=== PATIENT | female | born 1970 | race Caucasian/White ===

== ENCOUNTER → 2016-12-21 | Outpatient (CLI) | payer OTHER, MEDICARE | END | disposition home or self-care (01) | LOC: GMAH 12:05 | PROVIDERS: ATTEND Family Medicine | DX: E78.2 Mixed hyperlipidemia (principal); E03.9 Hypothyroidism, unspecified ==

== ENCOUNTER 2017-02-26 05:26 | Emergency (ER) | payer OTHER, MEDICARE ==
--- NOTE | 2017-02-26 06:05 | ED.PDOC ---
History of Present Illness - General Chief Complaint: Respiratory Problem Stated Complaint: found unrepsonsive Time Seen by Provider: 02/26/17 05:49 Source: patient, family, EMS - History of Present Illness Initial Comments: CRITICAL CARE RESUSCITATION NOTE (UNRESPONSIVENESS, SUSPECTED UNINTENTIONAL NARCOTIC OVERDOSE): AIRWAY, BREATHING, AND CIRCULATION IN TACT UPON ARRIVAL TO ER. PT TAKES NARCOTICS (OXYCODONE, FENTANYL PATCH) AND ANXIOLYTICS (XANAX, SEROQUEL , AMBIEN) FOR CHRONIC LBP. 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 AT 4 AM, HE FOUND HER IN THE [place]IN[place] ON THE [place] ASLEEP. HE CALLED HER NAME AND SHE WAS UNAROUSABLE. HE CALLED EMS. PT WAS UNRESPONSIVE VIA EMS, SATS 87%, RR 8, PUPILS PINPOINT. SYSTOLIC 87 THEY OBTAINED 22 G IV AND STARTED FLIUDS AND GAVE NARCAN 2 MG IV. SHE STARTED WAKING UP UPON ARRIVAL TO ER. IN ER, SHE BECAME VERBALLY RESPONSIVE, OPENED EYES SPONTANEOUSLY, YAWNING, REPEATEDLY STATING HOW SHE WAS VERY COLD. SHE HAD NUMEROUS BLANKETS ON TOP OF HER. WE PLACED NEW, WARM BLANKETS AND CHANGED TO THE WARMED IVF, AND RAISED THE TEMP OF THE TRAUMA ROOM. ATTEMPTING 2ND LINE CURRENTLY. HER SATS WERE 100% ON 2L VENTI MASK. SHE WAS ORIENTED X 3 TO ME AND [facility] 15. I REMOVED THE MASK AND SHE REMAINED 99% ON RA. BP ELEVATED TO NL W/ NARCAN AND IVF (SYSTOLIC 115) . Severity: severe Improving Factors: medication Associated Symptoms: other - C/O FEELING COLD Allergies/Adverse Reactions: Allergies Chlorhexidine [From Hibiclens] Allergy (Severe, Verified 03/09/14 15:49) Sulfa Drugs Allergy (Severe, Verified 03/09/14 15:49) Valproic Acid [From Depakote] Allergy (Severe, Verified 03/09/14 15:49) Doxycycline Allergy (Verified 02/26/17 06:18) Sumatriptan [From Imitrex] Allergy (Verified 02/26/17 06:18) Home Medications: Ambulatory Orders Vilazodone HCl [Viibryd] 40 mg PO DAILY 04/27/13 Metoprolol Succinate [Metoprolol Succinate ER] 50 mg PO DAILY 03/09/14 Tizanidine HCl 4 mg PO DAILY PRN 03/09/14 Zolpidem Tartrate [Zolpidem Tartrate ER] 12.5 mg PO HS 03/09/14 fentaNYL PATCH 100 MCG/HR [Duragesic Patch 100 mcg/hr] 100 mcg TOP Q48H Levetiracetam [Keppra] 1,000 mg PO BID 01/07/16 Nifedipine [Procardia Xl] 60 mg PO DAILY 01/07/16 Alprazolam [Xanax] 1 mg PO TID 02/26/17 Levothyroxine Sodium [Synthroid] 175 mcg PO DAILY 02/26/17 Oxycodone W/ Acetaminophen [Endocet 7.5-325 mg] 1 tab PO QID 02/26/17 Quetiapine Fumarate [Seroquel] 50 mg PO BEDTIME 02/26/17 Rosuvastatin Calcium [Crestor] 10 mg PO QID 02/26/17 Review of Systems - Review of Systems Constitutional: States: chills. Denies: diaphoresis, fever EENTM: States: no symptoms reported Respiratory: States: no symptoms reported Cardiology: States: no symptoms reported Gastrointestinal/Abdominal: States: no symptoms reported Genitourinary: States: no symptoms reported Musculoskeletal: States: back pain Skin: States: no symptoms reported Neurological: States: no symptoms reported Endocrine: States: no symptoms reported Hematologic/Lymphatic: States: no symptoms reported All other Systems: Reviewed and Negative Past Medical History (General) - Patient Medical History Hx Seizures: Yes Hx Cardiac Disorders: Yes - Blood clot to R shoulder (info provided by ) Hx Congestive Heart Failure: No Hx Hypertension: Yes Hx Diabetes: No Hx Renal Disease: Yes Hx MRSA: Yes MRSA Source:: R knee - Vaccination History Hx Tetanus, Diphtheria Vaccination: No Hx Influenza Vaccination: Yes Hx Pneumococcal Vaccination: No - Social History Hx Physical Abuse: No Hx Emotional Abuse: No Hx Suspected Abuse: No Family Medical History - Family History Mother Family History: Unknown Physical Exam - Physical Exam General Appearance: Lethargic, Well Nourished, Other - BECOMING ALERT Eye Exam: bilateral normal Ears, Nose, Throat: normal ENT inspection, normal pharynx Neck: non-tender Respiratory: chest non-tender, lungs clear, decreased breath sounds, other - RESPIRATIONS QUICKLY BECAME NORMAL WITH NL BREATH SOUNDS; NO RESPIRATORY DISTRESS. Cardiovascular/Chest: regular rate, rhythm, no edema, no gallop, no JVD, no murmur Peripheral Pulses: radial,right: 1+, radial,left: 1+ Gastrointestinal/Abdominal: normal bowel sounds, non tender, soft Back Exam: normal inspection, no vertebral tenderness, vertebral tenderness Extremity: normal range of motion, other - ANKLE PAIN FROM RECENT SPRAIN; DOROTEO WRAP IN PLACE. Neurologic: box liner II-XII nml as tested, no motor/sensory deficits, oriented x 3, other - NOTE: PT WAS UNRESPONSIVE UPON ARRIVAL AND NOW HER NEUROLOGIC STATUS HAS RETURNED TO NORMAL. NO POST ICTAL STATE; NO KNOWN EPILEPSY. Skin Exam: warm/dry, pallor Lymphatic: no adenopathy Progress - Progress Progress: 02/26/17 06:13 RE-EVALUATION: IS IS NOW COMPLETELY RECOVERED, RESPONSIVE, MAKING NL CONVERSATION. 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 LABS DRAWN. 02/26/17 06:54 PT IS HIGHLY REQUESTING TO GO HOME NOW, THE BED IS WORSENING HER LBP AND SHE HAS A SPECIAL BED AT HOME. SHE IS LUCID. WE ARE GETETING HER UP TO SEE IF CAN AMBULATE SAFELY. LABS ARE BACK EXCEPT UA. I ASKED HER IF SHE WOULD STAY JUST LONG ENOUGH FOR THE ANKLE XRAYS TO COME BACK, THAT WAY WE CAN TREAT HER WHILE SHE IS HERE FOR THE ANKLE SPRAIN VS FRACTURE. SHE IS OK WITH THIS PLAN. 02/26/17 07:07 XRAY - LAT MALLEOLAR NONDISPLACED FRX, CONTINUE ANKLE WRAP. ALL RESULTS ARE BACK AND PT IS CLEARED AND SAFE FOR DC TO HOME WITH HER WITH CLOSE FOLLOW-UP. - Results/Orders Results/Orders: LAB RESULTS: MILD NEUTROPHILIC LEUKOCYTOSIS. HYPOKALEMIA. NORMOCYTIC, NORMOCHROMIC ANEMIA. UA PENDING EKG SINUS RHYTHM WITH PROLONGED QT INTERVAL. NO ACUTE ST CHANGES. ANKLE XRAY = FRACTURE OF LATER MALLEOLUS, NONDISPLACED. Departure - Departure Clinical Impression: Unresponsiveness, Accidental poisoning by opiates and related narcotics, Anemia , Neutrophilic leukocytosis, Hypokalemia, Acute right ankle pain, Lateral malleolar fracture Disposition: Discharge to Home or Self Care Condition: Fair Departure Forms: ED Discharge - Pt. Copy, Patient Portal Self Enrollment Instructions: DI for Ankle Fracture Diet: resume usual diet Activity: increase activity as tolerated Referrals: Sandor Toledo MD [Primary Care Provider] - 1-2 Days Home Medications: Ambulatory Orders Vilazodone HCl [Viibryd] 40 mg PO DAILY 04/27/13 Metoprolol Succinate [Metoprolol Succinate ER] 50 mg PO DAILY 03/09/14 Tizanidine HCl 4 mg PO DAILY PRN 03/09/14 Zolpidem Tartrate [Zolpidem Tartrate ER] 12.5 mg PO HS 03/09/14 fentaNYL PATCH 100 MCG/HR [Duragesic Patch 100 mcg/hr] 100 mcg TOP Q48H Levetiracetam [Keppra] 1,000 mg PO BID 01/07/16 Nifedipine [Procardia Xl] 60 mg PO DAILY 01/07/16 Alprazolam [Xanax] 1 mg PO TID 02/26/17 Levothyroxine Sodium [Synthroid] 175 mcg PO DAILY 02/26/17 Oxycodone W/ Acetaminophen [Endocet 7.5-325 mg] 1 tab PO QID 02/26/17 Quetiapine Fumarate [Seroquel] 50 mg PO BEDTIME 02/26/17 Rosuvastatin Calcium [Crestor] 10 mg PO QID 02/26/17 Additional Instructions: Please follow-up with your neurologist and doctor regarding the Lyme disease and pain medications. Please follow-up with your doctor in 1 week to re- evaluate the ankle (lateral malleolus) fibular fracture. Critical Care Note - Critical Care Note Total Time (mins): 30 Comments: PER HPI
[2017-02-26 06:49] VITALS: TEMP 97.9
--- NOTE | 2017-02-26 07:21 | RAD ---
Procedure: XR ANKLE 3 OR MORE VIEWS Exam Date: 02/26/2017 Ordering Provider: Jerome Honeycutt Clinical Indication: PERSISTENT ANKLE AND FOOT PAIN FROM TWISTING ANKLE Comparison: None FINDINGS: Nondisplaced fracture of the lateral malleolus. No other fracture or dislocation of the right ankle. Diffuse soft tissue swelling. Ankle mortise is preserved. No significant joint effusion. No subcutaneous gas evident. No radiopaque foreign body. IMPRESSION: 1. Nondisplaced fracture of the lateral malleolus. 2. No other fracture or dislocation in the right ankle. 3. Diffuse soft tissue swelling. Electronically signed by: Grey Vivar MD 02/26/2017 7:20 AM CDT
--- NOTE | 2017-02-26 07:24 | RAD ---
Procedure: XR FOOT 3 OR MORE VIEWS Exam Date: 02/26/2017 Ordering Provider: Jerome Honeycutt Clinical Indication: PERSISTENT ANKLE AND FOOT PAIN FROM TWISTING ANKLE Comparison: None FINDINGS: No fracture or dislocation in the right foot. Nondisplaced fracture of the lateral malleolus as discussed on the dedicated ankle radiographs. No radiopaque foreign body. No subcutaneous gas evident. Soft tissue swelling overlying the dorsum of the foot. IMPRESSION: 1. No acute fracture or dislocation of the right foot. Electronically signed by: Grey Vivar MD 02/26/2017 7:23 AM CDT
[2017-02-26 07:30] VITALS: BP 153/74; O2SAT 95
== END 2017-02-26 07:30 | disposition home or self-care (01) ==
LOC: ER 05:26
DX: T50.991A Poisoning by other drugs, medicaments and biological substances, accidental (unintentional), initial encounter (principal); R55 Syncope and collapse; Z79.899 Other long term (current) drug therapy; G89.29 Other chronic pain; M54.5 Low back pain; D64.9 Anemia, unspecified; E87.6 Hypokalemia; D72.828 Other elevated white blood cell count; Z86.61 Personal history of infections of the central nervous system; I10 Essential (primary) hypertension; Z88.2 Allergy status to sulfonamides; Z88.3 Allergy status to other anti-infective agents; Z88.8 Allergy status to other drugs, medicaments and biological substances; Z86.14 Personal history of Methicillin resistant Staphylococcus aureus infection; S82.64XA Nondisplaced fracture of lateral malleolus of right fibula, initial encounter for closed fracture; X58.XXXA Exposure to other specified factors, initial encounter; Y92.008 Other place in unspecified non-institutional (private) residence as the place of occurrence of the external cause

== ENCOUNTER → 2017-04-05 | Outpatient (CLI) | payer MEDICARE, OTHER | END | disposition home or self-care (01) | LOC: LAB.O 09:12 | PROVIDERS: ATTEND Family Medicine | DX: I10 Essential (primary) hypertension (principal) ==

== ENCOUNTER → 2017-05-02 | Outpatient (CLI) | payer OTHER, MEDICARE ==
--- NOTE | 2017-05-03 14:14 | RAD ---
EXAM DESCRIPTION: Knee,Right Complete CLINICAL HISTORY: 46 years,Female,KNEE PAIN COMPARISON: None FINDINGS: The right knee demonstrates no fractures, dislocations, or other acute bony abnormalities. There is a prior transverse fracture of the patella fixated with a pin and cerclage wires and screw. It appears well healed. The fracture line was about 5 mm in width but is filled in well. The joint spaces are unremarkable. The soft tissues are unremarkable. No joint effusion. IMPRESSION: Prior healed fractures of the right patella no acute findings. Electronically signed by: Elroy Padgett MD 05/03/2017 2:13 PM CDT
--- NOTE | 2017-05-03 14:38 | RAD ---
EXAM DESCRIPTION: Ankle,Right 3 Views CLINICAL HISTORY: 46 years,Female,ANKLE PAIN COMPARISON: February 26, 2017 FINDINGS: The right ankle demonstrates transverse fracture the distal fibula with no significant displacement and some blurring of the fracture line since the prior study and no change in displacement. Ankle mortise and talar dome unremarkable. Soft tissues are unremarkable. IMPRESSION: Healing transverse fracture of the distal right fibula [] Electronically signed by: Elroy Padgett MD 05/03/2017 2:37 PM CDT
== END | disposition home or self-care (01) ==
LOC: RAD 13:58
PROVIDERS: ATTEND Orthopaedic Surgery
DX: M25.571 Pain in right ankle and joints of right foot (principal); M25.561 Pain in right knee

== ENCOUNTER → 2017-05-21 | Outpatient (CLI) | payer OTHER, MEDICARE | END | disposition home or self-care (01) | LOC: RESP 13:51 | PROVIDERS: ATTEND Orthopaedic Surgery | DX: Z01.818 Encounter for other preprocedural examination (principal) ==

== ENCOUNTER → 2017-05-25 | Outpatient (CLI) | payer OTHER, MEDICARE ==
--- NOTE | 2017-05-25 12:58 | RAD ---
EXAM DESCRIPTION: XR CHEST 2 VIEWS CLINICAL HISTORY: ESSENTIAL HYPERTENSION COMPARISON: None TECHNIQUE: PA/lateral FINDINGS: Heart size is normal. The lungs are clear. No acute bony abnormality. IMPRESSION: No acute cardiopulmonary process. Electronically signed by: Vidal Vo MD 05/25/2017 12:57 PM CDT
--- NOTE | 2017-05-25 14:08 | MRI ---
EXAM DESCRIPTION: Cervical Spine CLINICAL HISTORY: RADICULOPATHY, CERVICAL REGION. Pain with bilateral arm pain and numbness. COMPARISON: None Available. TECHNIQUE: MRI of the cervical spine is performed according to our usual protocol. FINDINGS: Straightening of the normal cervical lordosis, which may be seen with positioning or muscle spasm. Vertebral body stature is maintained. There is no acute fracture or destructive osseous lesion. Craniocervical junction and the cervical spinal cord are unremarkable. C2-3: No significant findings. C3-4: Mild disc desiccation. Mild facet hypertrophy and uncovertebral spurring. No spinal canal nor foraminal stenosis. C4-5: Mild disc desiccation and mild disc narrowing. Mild facet hypertrophy and uncovertebral spurring. 2 mm posterior disc osteophyte complex. Mild left greater than right neural foraminal stenosis. The spinal canal is patent. C5-6: Disc desiccation. Mild facet hypertrophy. No significant disc bulge, spinal canal, or neural foraminal stenosis. C6-7: Disc desiccation. Mild facet hypertrophy and uncovertebral spurring. Right lateral 3 mm disc protrusion with mild to moderate right neural foraminal stenosis. The spinal canal and left neural foramen are patent. C7-T1: No significant findings. IMPRESSION: 1. Mild multilevel spondylitic and facet degenerative changes in the cervical spine as described above. At C6-C7, there is mild to moderate right neural foraminal stenosis. 2. At C4-C5, there is mild left greater than right neural foraminal stenosis. 3. Other findings as above. Electronically signed by: Edgardo Rodriguez MD 05/25/2017 2:06 PM CDT
== END | disposition home or self-care (01) ==
LOC: MRI 10:22
PROVIDERS: ATTEND Psychiatry & Neurology Neurology
DX: G40.201 Localization-related (focal) (partial) symptomatic epilepsy and epileptic syndromes with complex partial seizures, not intractable, with status epilepticus (principal); I10 Essential (primary) hypertension; M54.12 Radiculopathy, cervical region

== ENCOUNTER 2017-05-28 05:38 | Day surgery (SDC) | payer OTHER, MEDICARE ==
--- NOTE | 2017-05-27 08:19 | HP ---
CHIEF COMPLAINT: Knee pain. HISTORY OF PRESENT ILLNESS: Tori is a 46-year-old female with a history of pain in the knee. She has had open reduction and internal fixation of her patella which healed successfully. Now it seems to be that she is having irritation over the hardware. She has no new trauma, denies any radiation of pain, and denies any neurologic symptoms. Given the healing that has taken place, we talked about options for her. After discussing the risks, benefits and alternatives for hardware removal, the patient has given informed consent for hardware removal. PAST SURGICAL HISTORY: She states she has had too many surgeries to list and she cannot recall all of them. MEDICATIONS: 1. Levothyroxine. 2. Keppra. 3. Procardia. 4. Toprol. 5. Nexium. 6. Tylenol 4. ALLERGIES: NO KNOWN DRUG ALLERGIES. CODE STATUS: Full code. IMMUNIZATIONS: Up to date. SOCIAL HISTORY: The patient does not drink, smoke or use any illicit drugs. FAMILY HISTORY: None pertinent to today's complaint. REVIEW OF SYSTEMS: Negative except as indicated in the History of Present Illness. PHYSICAL EXAMINATION: VITAL SIGNS: Blood pressure 150/102. Pulse 68. Height 5'8". Weight 159. MENTAL STATUS: The patient is awake, alert, and is able to give a good history and participate in the physical. The patient is oriented to person, place and time. SKIN: Normal tone and turgor. MUSCULOSKELETAL: She has sensitivity over the anterior aspect of the patella and she does have skin changes consistent with her chronic psoriasis although those appear to be well controlled at this point. She has no significant effusion right now. She has no varus/valgus or anterior/posterior laxity. There is no erythema overlying the area. IMAGING: X-rays show a healed patella fracture with some superficial appearing hardware. ASSESSMENT: 1. Symptomatic hardware. PLAN: The plan at this point is for hardware removal. We have discussed the risks, benefits, and alternatives to that and the patient has given informed consent. #[id number] [facility]
[2017-05-28] MEDS ORDERED: LACTATED RINGERS 1,000 ML ONE (05:49)
[2017-05-28] MEDS ORDERED: SODIUM CHL 0.9% 100ML MINI-BAG 100 ML IVPB ONE (05:49)
[2017-05-28] MEDS ORDERED: ceFAZolin SODIUM 1 GM VIAL ONE ×2 (05:50→06:42)
[2017-05-28] MEDS ORDERED: fentaNYL CITRATE INJ 50 MCG/ML AMP ONE (06:15)
[2017-05-28] MEDS ORDERED: VANCOMYCIN HCL INJ 1,000 MG VIAL IVPB ONE (06:42)
[2017-05-28] MEDS ORDERED: PROPOFOL 200 MG/20 ML VIAL IV ONE (07:00)
[2017-05-28] MEDS ORDERED: LIDOCAINE 1% W/ EPINEPHRINE 20 ML VIAL INJ ONE (08:13)
[2017-05-28] MEDS ORDERED: HYDROcodone 5MG/APAP 325MG 1 EA TAB ONE (09:38)
--- NOTE | 2017-05-28 09:48 | OP ---
DATE OF PROCEDURE: 05/28/17 PREOPERATIVE DIAGNOSIS: 1. Symptomatic hardware, right knee. POSTOPERATIVE DIAGNOSIS: 1. Symptomatic hardware, right knee. PROCEDURE: 1. Hardware removal. SURGEON: Ahmet Suggs MD. COMBATANT SWIMMER: Miguelangel Cohn CST, SA-C. ANESTHESIA: General anesthesia. COMPLICATIONS: None. FINDINGS: Prominent hardware from previous open reduction and internal fixation of patella. INDICATION: Tori had undergone previous open reduction and internal fixation of her patella. She had healing of the patella fracture, however, once all the swelling had resolved, she ultimately had prominence of the hardware. It was causing local irritation and she requested removal of that hardware. Because of that continued irritation, we did discuss the risks, benefits and alternatives to that and she gave informed consent. PROCEDURE: The patient was brought to the Operating Room and placed in supine position. General anesthesia was induced. The patient's leg was sterilely prepped and draped. Following prepping and draping, an incision was made in line with her previous incision. Blunt dissection was carried down to the hardware which was fully exposed. Following exposure, the hardware was removed without complication. The patella was imaged to ensure complete removal of all hardware. Once that had been confirmed, the wound was thoroughly irrigated. The wound was closed with a combination and running and interrupted subcuticular stitches. Sterile dressings were placed. The patient was awoken from anesthesia and taken to Recovery. POSTOPERATIVE PLAN: She will be weight-bearing as tolerated and followup with us in three days. #[id number] [facility]
[2017-05-28 09:59] VITALS: TEMP 97.6; O2SAT 100
[2017-05-28 10:02] VITALS: BP 124/67
== END 2017-05-28 10:30 | disposition home or self-care (01) ==
LOC: AMB 05:38
PROVIDERS: ATTEND Orthopaedic Surgery
DX: Z47.2 Encounter for removal of internal fixation device (principal); I10 Essential (primary) hypertension; E03.9 Hypothyroidism, unspecified; K21.9 Gastro-esophageal reflux disease without esophagitis; F41.8 Other specified anxiety disorders; F17.200 Nicotine dependence, unspecified, uncomplicated; Z79.899 Other long term (current) drug therapy
CPT/HCPCS: 01400; 20680; 76000; J0690; J3010; J3370; J3490; J7050; J7120

== ENCOUNTER → 2018-04-04 | Outpatient (CLI) | payer OTHER | LOC: LAB.O 09:32 | PROVIDERS: ATTEND Family Medicine | DX: I10 Essential (primary) hypertension (principal); R56.9 Unspecified convulsions; E78.2 Mixed hyperlipidemia; E03.9 Hypothyroidism, unspecified ==

== ENCOUNTER 2018-04-12 22:33 | Emergency (ER) | payer OTHER ==
[2018-04-12] MEDS ORDERED: POVIDONE IODINE 10 % 15 ML UD TOP ONE (23:10)
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
[2018-04-12] MEDS ORDERED: TETANUS-DIPHTHERIA TOXOIDS (TD 1 EA SYG IM ONE (23:24)
[2018-04-12] MEDS ORDERED: TETANUS,DIPHTHERIA,PERTUSSIS 1 EA SYG IM ONE (23:39)
[2018-04-12] MEDS ORDERED: KETOROLAC TROMETHAMINE INJ 60 MG/2 ML VIAL IM ONE (23:56)
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
--- NOTE | 2018-04-13 00:22 | RAD ---
EXAM: Thoracic Spine Lateral CLINICAL INDICATION: 47-year-old female status post fall. TECHNIQUE: Three views of the thoracic spine were obtained in AP, lateral, and swimmer's view projection. COMPARISON: None. FINDINGS: The cervical thoracic junction is not well-visualized on the swimmer's view secondary to overlying bony structures. Alignment of the thoracic spine is within normal limits. There is no subluxation or fracture deformity. Morphology of the vertebral bodies and intervertebral disc spaces is within normal limits. The remainder of the visualized bones are within normal limits. IMPRESSION: No acute radiographic abnormality. Electronically signed by: Kezia De Leon MD 04/13/2018 12:20 AM CDT
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
[2018-04-13 00:46] VITALS: BP 134/72; TEMP 98
== END 2018-04-13 00:46 | disposition home or self-care (01) ==
LOC: ER 22:33
DX: S51.011A Laceration without foreign body of right elbow, initial encounter (principal); S30.0XXA Contusion of lower back and pelvis, initial encounter; S80.01XA Contusion of right knee, initial encounter; S50.11XA Contusion of right forearm, initial encounter; R41.0 Disorientation, unspecified; R00.0 Tachycardia, unspecified; E07.9 Disorder of thyroid, unspecified; N28.9 Disorder of kidney and ureter, unspecified; I10 Essential (primary) hypertension; Z79.899 Other long term (current) drug therapy; Z87.891 Personal history of nicotine dependence; Z23 Encounter for immunization; W17.89XA Other fall from one level to another, initial encounter

== ENCOUNTER → 2018-10-14 | Outpatient (CLI) | payer MEDICARE | LOC: GMAH 12:37 | PROVIDERS: ATTEND Family Medicine | DX: E03.9 Hypothyroidism, unspecified (principal) ==

== ENCOUNTER → 2018-12-01 | Outpatient (CLI) | payer MEDICARE ==
--- NOTE | 2018-12-01 16:35 | RAD ---
EXAM DESCRIPTION: Chest,2 Views CLINICAL HISTORY: COUGH COMPARISON: Previous study May 25, 2017 TECHNIQUE: PA/lateral FINDINGS: There is no acute appearing cardiac or pulmonary abnormality. Heart size is normal with normal pulmonary vascularity. No pleural effusion or pneumothorax. Lungs are clear with no consolidating infiltrate. Lateral view shows intact sternum and T-spine. IMPRESSION: No acute process is identified in the chest. Electronically signed by: Ike Lugo MD 12/01/2018 4:32 PM TEST PREPARATION TUTOR
== END ==
LOC: RAD 13:54
PROVIDERS: ATTEND Nurse Practitioner Family
DX: R05 Cough (principal)

== ENCOUNTER 2019-04-09 18:26 | Inpatient (IN) | payer MEDICARE ==
[2019-04-09] MEDS ORDERED: PROCHLORPERAZINE INJ 10 MG/2 ML VIAL IV ONE (18:41)
--- NOTE | 2019-04-09 18:59 | ED.PDOC ---
History of Present Illness - General Chief Complaint: GI Problem Stated Complaint: N/V x 2 days Time Seen by Provider: 04/09/19 18:53 Information Source: patient Exam Limitations: no limitations - History of Present Illness Initial Comments: Tori Hernandes 48 y/o female stated that she had on and off N/V started at 0200 H yesterday and had tried enema stool softener since she had not had BM for 2 days but stated continue to throw up.Had dental procedure done 2 weeks ago.Has history of bowel obstruction in the past with multiple abdominal surgeries.She was given 2 l of IVF at home by her EMS. Abdominal Pain Onset Location: generalized abdomen Pain Radiation: no radiation Quality: moderate Timing/Duration: other - see hpi Improving Factors: nothing Worsening Factors: eating Associated Symptoms: other - see hpi Review of Systems - Review of Systems Constitutional: States: no symptoms reported EENTM: States: no symptoms reported Respiratory: States: no symptoms reported Cardiology: States: no symptoms reported Gastrointestinal/Abdominal: States: see HPI Genitourinary: States: no symptoms reported All other Systems: Reviewed and Negative, No Change from Baseline Past Medical History (General) - Patient Medical History Hx Seizures: Yes Hx Dementia: Yes - some confusion on occ. Hx Cardiac Disorders: Yes - tachycardia Hx Congestive Heart Failure: No Hx Hypertension: Yes Hx Thyroid Disease: Yes Hx Diabetes: No Hx Renal Disease: Yes Hx MRSA: Yes MRSA Source:: NOSE Surgical History: cholecystectomy, other - laparoscopic surgeries- oophorectomy;lumbar spine-abd approach - Vaccination History Hx Tetanus, Diphtheria Vaccination: No Hx Influenza Vaccination: Yes Hx Pneumococcal Vaccination: No - Social History Hx Tobacco Use: Yes Hx Alcohol Use: No Hx Substance Use: Yes - pain medication RX Hx Depression: Yes Hx Physical Abuse: No Hx Emotional Abuse: No Hx Suspected Abuse: No Family Medical History - Family History Mother Family History: Unknown Hx Family Diabetes: Yes Hx Family Cancer: Yes - breast Physical Exam - Physical Exam General Appearance: Alert, Comfortable, No apparent distress Eyes, Ears, Nose, Throat Exam: normal ENT inspection, other - edentulous Neck: supple, normal inspection Respiratory: chest non-tender, lungs clear, normal breath sounds, no respiratory distress Cardiovascular/Chest: normal peripheral pulses, regular rate, rhythm, no murmur Peripheral Pulses: No deficit Gastrointestinal/Abdominal: soft, abnormal bowel sounds, tenderness - mid abdomen;no peritoneal signs Back Exam: no CVA tenderness, no vertebral tenderness Extremity: no pedal edema, no calf tenderness Neurologic: alert, oriented x 3 Skin Exam: normal color, warm/dry Lymphatic: no adenopathy Progress - Progress Progress: 04/09/19 19:06 04/09/19 18:39 Abdomen/Pelvis w/Contrast [CT] Stat COMPLETE METABOLIC PROFILE Stat LIPASE Stat 04/09/19 18:40 Hold Metformin x 48Hrs [id number] 04/09/19 18:54 CARDIAC ENZYME GROUP Stat URINALYSIS Stat 04/09/19 19:05 Chest,1 View [RAD] Stat Laboratory Results - last 24 hr 04/09/19 04/09/19 18:39 18:39 WBC 19.2 H RBC 4.33 Hgb 15.1 Hct 44.2 MCV 102.1 H MCH 34.9 H MCHC 34.1 RDW 13.1 Plt Count 262 MPV 8.4 Absolute Neuts (auto) 17.30 H Absolute Lymphs (auto) 1.30 Absolute Monos (auto) 0.60 Absolute Eos (auto) 0.00 Absolute Basos (auto) 0.00 Neutrophils % 90.0 H Lymphocytes % 6.7 L Monocytes % 3.0 Eosinophils % 0.1 L Basophils % 0.2 Sodium 140 Potassium 3.5 L Chloride 100 L Carbon Dioxide 27 Anion Gap 16.5 Calcium 9.2 Lipase 22 04/09/19 20:13 D/W Dr. Busch-surgeon for admit;also with regarding admit to [facility] agreed with plan. - Results/Orders Results/Orders: 04/09/19 18:40 Hold Metformin x 48Hrs [id number] 04/09/19 18:54 URINALYSIS Stat 04/09/19 19:32 Magnesium Sulfate Premix 2Gm 2 gm Premix Bag 1 bag IVPB ONCE Sodium Chloride 0.9% 1000ML [Ns 1000 ml] 1,000 ml IVS .QD 04/09/19 19:54 Piperacillin/Tazobactam [Zosyn] 3.375 gm Sodium Chloride 0.9% 100Ml [NS (NACL 0.9%) 100ml] 100 ml IVPB ONCE 04/09/19 20:01 NG [Tube(s):Nasogastric,Insertion] PRN Laboratory Results - last 24 hr 04/09/19 04/09/1904/09/19 18:39 18:39 18:54 WBC 19.2 H RBC 4.33 Hgb 15.1 Hct 44.2 MCV 102.1 H MCH 34.9 H MCHC 34.1 RDW 13.1 Plt Count 262 MPV 8.4 Absolute Neuts (auto) 17.30 H Absolute Lymphs (auto) 1.30 Absolute Monos (auto) 0.60 Absolute Eos (auto) 0.00 Absolute Basos (auto) 0.00 Neutrophils % 90.0 H Lymphocytes % 6.7 L Monocytes % 3.0 Eosinophils % 0.1 L Basophils % 0.2 Sodium 140 Potassium 3.5 L Chloride 100 L Carbon Dioxide 27 Anion Gap 16.5 BUN 18 Creatinine 0.82 BUN/Creatinine Ratio 22.0 H Random Glucose 109 H Serum Osmolality 281.9 Lactic Acid Calcium 9.2 Magnesium Total Bilirubin 0.8 AST 21 ALT 21 Alkaline Phosphatase 96 Creatine Kinase 56 CK-MB (CK-2) 1.3 CK-MB (CK-2) % Not Reportable Troponin I < 0.02 Serum Total Protein 7.7 Albumin 4.2 Globulin 3.5 Albumin/Globulin Ratio 1.2 Lipase 22 04/09/19 04/09/19 19:06 19:07 WBC RBC Hgb Hct MCV MCH MCHC RDW Plt Count MPV Absolute Neuts (auto) Absolute Lymphs (auto) Absolute Monos (auto) Absolute Eos (auto) Absolute Basos (auto) Neutrophils % Lymphocytes % Monocytes % Eosinophils % Basophils % Sodium Potassium Chloride Carbon Dioxide Anion Gap BUN Creatinine BUN/Creatinine Ratio Random Glucose Serum Osmolality Lactic Acid 1.1 Calcium Magnesium 1.7 L Total Bilirubin AST ALT Alkaline Phosphatase Creatine Kinase CK-MB (CK-2) CK-MB (CK-2) % Troponin I Serum Total Protein Albumin Globulin Albumin/Globulin Ratio Lipase - EKG/XRAY/CT XRAY: chest - no acute findings CT Ordered: Yes - abd/p-SBO high grade w/ transition mid abdomen Departure - Departure Clinical Impression: SBO (small bowel obstruction) Nausea & vomiting Qualifiers: Vomiting type: unspecified Vomiting Intractability: non-intractable Qualified Code(s): R11.2 - Nausea with vomiting, unspecified Time of Disposition: 20:18 Disposition: Admit Patient Condition: Fair Departure Forms: Patient Portal Self Enrollment Referrals: Sandor Toledo MD [Primary Care Provider] - 1-2 Weeks Home Medications: Ambulatory Orders Vilazodone HCl [Viibryd] 20 mg PO DAILY 04/27/13 Metoprolol Succinate [Metoprolol Succinate ER] 60 mg PO DAILY 03/09/14 Zolpidem Tartrate [Zolpidem Tartrate ER] 12.5 mg PO HS 03/09/14 Levetiracetam [Keppra] 1,000 mg PO BID 01/07/16 Nifedipine [Procardia Xl] 60 mg PO DAILY 01/07/16 Alprazolam [Xanax] 1 mg PO TID 02/26/17 Levothyroxine Sodium [Synthroid] 175 mcg PO DAILY 02/26/17 Acetamin W/Cod #3 Tab [Tylenol w/CODEINE #3] 1 - 2 ea PO QID 05/27/17 Dexlansoprazole [Dexilant] 60 mg PO DAILY 05/27/17 Naloxegol Oxalate [Movantik] 25 mg PO DAILY 05/27/17 Phenytoin Sodium Cap Extended [Dilantin Cap] 300 mg PO BEDTIME 05/27/17 Tizanidine HCl [Zanaflex] 4 mg PO TID 05/27/17 Cephalexin Monohydrate [Keflex] 500 mg PO TID #21 cap 04/13/18 Decision To Admit - Decistion To Admit Decision to Admit Reason: Admit from ER Decision to Admit Date: 04/09/19 - D/W Fartun Blancas -Hospitalist Decision to Admit Time: 20:15
[2019-04-09] MEDS ORDERED: MORPHINE SULFATE INJ 10 MG/ML VIAL IV ONE (19:02)
[2019-04-09] MEDS ORDERED: MAGNESIUM SULFATE PREMIX 2GM 2 GM in PREMIX BAG 1 BAG IVPB ONE (19:32)
[2019-04-09] MEDS ORDERED: SODIUM CHLORIDE 0.9% 1000ML 1,000 ML IVS PRN (19:32)
[2019-04-09] MEDS ORDERED: MAGNESIUM SULFATE PREMIX 2GM 50 ML IVPB ONE (19:38)
--- NOTE | 2019-04-09 19:45 | CT ---
EXAM DESCRIPTION: Abdomen/Pelvis w/Contrast CLINICAL HISTORY: 48 years Female abd pain, vomiting COMPARISON: None. TECHNIQUE: Contiguous axial images obtained through the abdomen and pelvis following IV contrast. Reformatted images obtained. This exam was performed according to our department optimization program which includes automated exposure control, adjustment of the mA and/or kv according to patient size and/or use of iterative reconstruction technique. FINDINGS: The liver appears unremarkable. The spleen and pancreas appear unremarkable. No adrenal masses. The kidneys appear unremarkable. No hydronephrosis. The gallbladder is visualized. No aneurysmal dilatation of the aorta.Vascular calcification is present. There is distention of the stomach and moderate distention of small bowel consistent with obstruction. Zone of transition is in the right mid abdomen. Distal small bowel is decompressed. Small amount of edema in the mesentery and fluid in the pelvis. The appendix is not clearly identified. There is some wall thickening in the involved loops of bowel. No evidence of perforation. IMPRESSION: Findings consistent with high-grade small bowel obstruction with zone of transition in the right mid abdomen There is some wall thickening in the obstructed segments of bowel as well as edema in the mesentery and fluid in the pelvis Electronically signed by: Priti Ochoa MD 04/09/2019 7:43 PM CDT
--- NOTE | 2019-04-09 19:46 | RAD ---
EXAM DESCRIPTION: Chest,1 View CLINICAL HISTORY:48 years Female, n/v Comparison: December 01, 2018 FINDINGS: No focal lung consolidation. No pleural effusion. No pneumothorax. Cardiac and mediastinal silhouette is unremarkable. No acute osseous abnormality. Soft tissues are unremarkable. IMPRESSION: No acute findings. No focal lung consolidation. Electronically signed by: Wayne Salcido MD 04/09/2019 7:44 PM CDT
[2019-04-09] MEDS ORDERED: PIPERACILLIN/TAZOBACTAM 3.375 GM in SODIUM CHLORIDE 0.9% 100ML 100 ML IVPB ONE (19:54)
[2019-04-09] MEDS ORDERED: SODIUM CHLORIDE 0.9% 100ML 100 ML IVPB ONE (20:00)
[2019-04-09] MEDS ORDERED: PIPERACILLIN/TAZOBACTAM 3.375 GM VIAL IVPB ONE (20:00)
[2019-04-09] MEDS ORDERED: MIDAZOLAM INJ 5 MG/5 ML VIAL IV ONE (20:27)
--- NOTE | 2019-04-09 21:29 | HP ---
SUPERVISING PHYSICIAN: Vick Stern MD CHIEF COMPLAINT: Right upper quadrant epigastric abdominal pain with nausea and vomiting. HISTORY OF PRESENT ILLNESS: This is a 48-year-old female patient that started some nausea and vomiting at 2 o'clock in the morning on the day of admission. She has a history of obstipation and constipation so she tried some laxatives, but that only increased her vomiting. She decided to come to the Emergency Room after her nausea and vomiting worsened. She was actually given 2 liters of IV fluids at home by her who is an EMS and she came to the Emergency Room. Her vital signs in the Emergency Room were temperature 99.8, heart rate 96, blood pressure 144/78, respiratory rate 18, O2 saturation 94% on room air. Lab was drawn. She had a WBC of 19,200, hemoglobin 15.1, hematocrit 44.2. She did have a left shift on differential. Sodium 140, potassium 3.5, chloride 100, lactic acid 1.1, magnesium 1.7. Liver enzymes were within normal limits. Cardiac enzymes were negative. Urinalysis showed urine pH 9 with urine protein 100, urine nitrite positive, urine bilirubin small and 3 to 5 urine WBCs. Urine culture was ordered. Abdominal x-ray showed normal cardiomediastinal silhouette. The visualized lung bases were clear. The patient has a known small bowel obstruction from previous CT. Scattered large and small intestinal bowel gas with a few short segment air-fluid levels, maximal gaseous distended transverse dimension of small intestine approximately 3.5 cm. Her chest x-ray showed no acute findings, no focal lung consolidation. Her abdominopelvic CT showed findings consistent with high-grade small bowel obstruction with zone of transition in the right mid abdomen. There is some wall thickening in the obstructed segments of bowel as well as edema in the mesentery and fluid in the pelvis. She was started on Zosyn and given some additional fluids as well as some antiemetics. I was called for hospital admission. PAST MEDICAL HISTORY: 1. 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 Last seizure was two years ago. She is on Dilantin. 2. Hypertension. 3. Hypothyroidism. 4. History of tachycardia, but has improved since losing weight. 5. Depression. 6. Anxiety. 7. Obstipation and constipation. 8. Distant history of migraine headaches. She has not had any in several years. PAST SURGICAL HISTORY: 1. Laparotomy for bowel obstruction. 2. Back surgery with an L5 disc replacement. 3. Ablation. 4. Cholecystectomy. 5. Appendectomy. 6. She has had all her teeth removed recently. 7. Right oophorectomy. OUTPATIENT MEDICATIONS: Per the EMR and awaiting verification. ALLERGIES: CHLORHEXIDINE, VALPROIC ACID, DOXYCYCLINE, SUMATRIPTAN. SOCIAL HISTORY: She lives in [place]. She is . She smokes one pack of cigarettes daily. She denies any ETOH or illicit drug use. REVIEW OF SYSTEMS: GENERAL: Positive for fatigue and weakness. Negative for unintentional weight loss or gain. HEENT: Negative for sinus symptoms, ear pain, vision changes or sore throat. RESPIRATORY: Negative for wheezing, coughing or shortness of breath. CARDIAC: Negative for chest pain, palpitations or tachycardia. GASTROINTESTINAL: As per history of present illness. GENITOURINARY: Negative for hematuria, dysuria or polyuria. MUSCULOSKELETAL: Negative for arthralgias, myalgias. SKIN: Negative for lesions or rashes. NEUROLOGIC: Positive for seizures although she has not had one in two years. Positive for remote history of migraine headaches, but has not had one in years. Negative for dizziness. PHYSICAL EXAMINATION: VITAL SIGNS: Temperature 97.8. Heart rate 78. Blood pressure 197/63. Respiratory rate 16. O2 saturation 94%. GENERAL: This is a 48-year-old female patient who is lying in her hospital bed. She is in no acute distress. HEENT: Normocephalic, atraumatic. Pupils are equal and reactive. Oropharynx is clear. She does have an NG tube to suction in her left naris. NECK: Supple without mass. RESPIRATORY: Essentially clear to auscultation bilaterally. CHEST: There is equal rise and fall of the chest with inspiration and expiration. CARDIOVASCULAR: Regular rate and rhythm. GASTROINTESTINAL: Abdomen is soft, nondistended. It is moderately tender in the right upper quadrant mid epigastric regions. There is no rebound tenderness or guarding. GENITOURINARY: Deferred. SKIN: Warm and dry. NEUROLOGIC: Awake, alert and oriented times three. Cranial nerves II-XII are grossly intact. LABORATORY: Labs and films are as per history of present illness. IMPRESSION: 1. High grade small bowel obstruction with zone of transition in the right mid abdomen. 2. Urinary tract infection. 3. Right upper quadrant epigastric pain with nausea and vomiting. 4. History of hypertension. 5. History of seizures. 6. Hypothyroidism on medications. 7. Tobacco abuse and a long-term smoker. 8. History of depression and anxiety. PLAN: We will admit the patient to the hospital. She will be on bowel rest and her NG tube will be placed to low intermittent suction. I consulted Dr. Busch, general surgeon. I will re-start her home medications as soon as they are available. She will have primary IV fluid until she is taking p.o. fluids again. I will defer to Dr. Busch for further recommendation. She is on proton pump inhibitor for ulcer prophylaxis as well as Lovenox for DVT prophylaxis. I will also start her on some nebulizer treatments as well as give her a nicotine patch and we have discussed smoking cessation. We will continue to monitor the patient closely and follow as needed. #[id number] MTDD
[2019-04-09] MEDS ORDERED: NON-FORMULARY MEDICATION 1 EA MIS (Alprazolam [Xanax] 1 MG) PO PRN (21:52)
[2019-04-09] MEDS ORDERED: tiZANidine 4 MG TAB PO PRN (21:52)
[2019-04-09] MEDS ORDERED: ACETAMINOPHEN 325 MG TAB PO PRN (22:01)
[2019-04-09] MEDS ORDERED: SODIUM CHLORIDE 0.9% (FLUSH) 10 ML SYG IV PRN (22:01)
[2019-04-09] MEDS ORDERED: IV SET AND CAP CHANGE INJ INJ SCH (22:30)
[2019-04-09] MEDS ORDERED: PIPERACILLIN/TAZOBACTAM 3.375 GM in SODIUM CHLORIDE 0.9% 100ML 100 ML IVPB SCH (23:00)
[2019-04-09] MEDS ORDERED: QUEtiapine FUMARATE 100 MG TAB PO SCH (23:27)
[2019-04-09] MEDS ORDERED: CELECOXIB 100 MG CAP PO ONE (23:30)
[2019-04-09] MEDS ORDERED: diphenhydrAMINE HCL 25 MG CAP PO ONE (23:30)
[2019-04-09] MEDS ORDERED: MELATONIN 3 MG TAB PO ONE (23:30)
[2019-04-09] MEDS ORDERED: ACETAMINOPHEN W/ COD #4 TAB 1EA TAB PO ONE (23:30)
[2019-04-09] MEDS: METOPROLOL SUCCINATE XL 50 MG TAB PO SCH (23:30)
[2019-04-09] MEDS ORDERED: ZOLPIDEM TARTRATE 10 MG TAB PO ONE (23:59)
[2019-04-10] MEDS ORDERED: QUEtiapine FUMARATE 100 MG TAB ONE (00:01)
[2019-04-10] MEDS ORDERED: ALPRAZolam 0.5 MG TAB ONE (00:01)
[2019-04-10] MEDS ORDERED: PIPERACILLIN/TAZOBACTAM 3.375 GM VIAL IVPB ONE ×4 (00:03→19:18)
[2019-04-10] MEDS ORDERED: SODIUM CHLORIDE 0.9% 100ML 100 ML IVPB ONE ×4 (00:04→19:18)
[2019-04-10] MEDS ORDERED: QUEtiapine FUMARATE 100 MG TAB PO SCH ×2 (00:12→09:00)
[2019-04-10] MEDS: PHENYTOIN SODIUM CAP EXTENDED 100 MG CAP PO SCH ×2 (00:17→20:23)
[2019-04-10] MEDS ORDERED: QUEtiapine FUMARATE 100 MG TAB PO ONE (00:23)
[2019-04-10] MEDS: KCL 20MEQ/D5 1/2NS 1,000 ML IVS PRN (00:31)
[2019-04-10] MEDS: PIPERACILLIN/TAZOBACTAM 3.375 GM in SODIUM CHLORIDE 0.9% 100ML 100 ML IVPB SCH ×4 (00:35→23:57)
[2019-04-10] MEDS ORDERED: PIPERACILLIN/TAZOBACTAM 3.375 GM in SODIUM CHLORIDE 0.9% 100ML 100 ML IVPB SCH (05:00)
[2019-04-10] MEDS ORDERED: LEVOTHYROXINE SODIUM 0.1 MG TAB ONE (06:28)
[2019-04-10] MEDS ORDERED: LEVOTHYROXINE SODIUM 0.075 MG TAB ONE (06:28)
[2019-04-10] MEDS ORDERED: NON-FORMULARY MEDICATION 1 EA MIS (Levothyroxine Sodium [Synthroid] 175 MCG) PO SCH (06:30)
[2019-04-10] MEDS: PANTOPRAZOLE SODIUM IV 40 MG VIAL IV SCH (06:40)
[2019-04-10] MEDS: ACETAMINOPHEN W/COD #3 TAB 1 EA TAB PO PRN ×2 (06:51→20:22)
--- NOTE | 2019-04-10 07:22 | RAD ---
EXAM DESCRIPTION: Spine and upright radiographs, 2 views CLINICAL HISTORY: Small bowel obstruction FINDINGS/ IMPRESSION: Normal cardiomediastinal silhouette. The visualized lung bases are clear Patient has a known small bowel obstruction from previous CT. Scattered large and small intestinal bowel gas with a few short segment air-fluid levels. Maximal gaseous distended transverse dimension of small intestine approximately 3.5 cm No pneumatosis. No free intraperitoneal air Electronically signed by: Vidal Vo MD 04/10/2019 7:20 AM CDT
[2019-04-10] MEDS ORDERED: KCL 20MEQ/WATER FOR INJ 100ML 20 MEQ in PREMIX BAG 1 BAG IVPB ONE (08:39)
[2019-04-10] MEDS ORDERED: ALPRAZolam 0.25 MG TAB ONE (08:45)
[2019-04-10] MEDS ORDERED: KCL 20MEQ/WATER FOR INJ 100ML 100 ML IVPB ONE (08:54)
[2019-04-10] MEDS ORDERED: DEX 5% W/NACL 0.45% 1000ML 0 ML IVS ONE (08:54)
[2019-04-10] MEDS ORDERED: NIFEdipine XL 30 MG TAB PO ONE (08:55)
[2019-04-10] MEDS ORDERED: PRAZOSIN HCL 5 MG PO SCH (09:00)
[2019-04-10] MEDS ORDERED: NIFEDIPINE 60 MG PO SCH (09:00)
[2019-04-10] MEDS: SODIUM CHLORIDE 0.9% (FLUSH) 10 ML SYG IV SCH ×2 (09:01→20:23)
[2019-04-10] MEDS ORDERED: ALBUTEROL SULFATE 2.5 MG/3 ML VIAL NEB PRN (09:33)
[2019-04-10] MEDS ORDERED: NICOTINE PATCH 14 MG TD ONE (09:41)
[2019-04-10] MEDS: NICOTINE PATCH 14 MG TD SCH (09:44)
[2019-04-10] MEDS: MORPHINE SULFATE INJ 10 MG/ML VIAL IV PRN ×2 (12:16→23:43)
[2019-04-10] MEDS: (Vilazodone Hcl [Viibryd] 20 MG) PO SCH (13:04)
[2019-04-10] MEDS: METOPROLOL SUCCINATE XL 50 MG TAB PO SCH (13:04)
--- NOTE | 2019-04-10 13:23 | CONS ---
DATE OF CONSULTATION: 04/10/19 HISTORY OF PRESENT ILLNESS: The patient is a 48-year-old female who was admitted through the Emergency Room yesterday for nausea, vomiting and a CT scan consistent with bowel obstruction. She has a history of previous bowel obstructions including requiring laparotomy. Nasogastric tube was placed in the Emergency Room and it appears she has had greater than 4 liters of fluid out of her NG tube. She feels better this morning with a little pain in the abdomen, although she has taken some pain medication. She was started on Zosyn for her white count of 19,000. Her last bowel movement that was normal was the day before yesterday. It was noted she gave herself an enema yesterday and had a small amount of stool. PAST MEDICAL HISTORY: 1. Hypertension. 2. Hypothyroidism. 3. Tachycardia. 4. Depression. 5. Anxiety. 6. Obstipation. 7. Migraine headaches. 8. History of Lyme disease with psoriatic arthritis and seizures. PAST SURGICAL HISTORY: 1. Laparotomy for bowel obstruction. 2. Back operation. 3. Uterine ablation. 4. Cholecystectomy. 5. Appendectomy. 6. Right oophorectomy. 7. Teeth removed. MEDICATIONS: Please see her medication record on the chart. ALLERGIES: CHLORHEXIDINE, VALPROIC ACID, DOXYCYCLINE, SUMATRIPTAN. SOCIAL HISTORY: The patient is . She lives in [place]. She has a 20+ pack year history of tobacco abuse. She does not use alcohol or drugs. REVIEW OF SYSTEMS: There has been no change in her bowel habits, no weight loss. Her appetite has been normal up until a few days ago. She denies blood per rectum, melanotic stools. She denies chest pain, shortness of breath. PHYSICAL EXAMINATION: GENERAL: The patient is awake, alert, cooperative, in moderate distress. VITAL SIGNS: The patient is currently afebrile, normotensive. HEENT: Sclerae nonicteric. There is a nasogastric tube in her left nostril with bilious drainage. Mucous membranes moist. NECK: Without adenopathy. BACK: Without CVA tenderness. CHEST: Equal breath sounds bilaterally. HEART: Regular rate and rhythm. ABDOMEN: Soft. Nondistended. There is minimal tenderness in the right abdomen. No rebound, guarding or masses are palpated. PELVIC/RECTAL: Deferred. EXTREMITIES: Without cyanosis, clubbing or edema. LABORATORY: Today, white count is down to 13,000 with 82% segmented neutrophils, hemoglobin 13, platelet count 235,000. Chemistries today show liver functions within normal limits. Potassium 3.1, creatinine 0.95. Lipase was within normal limits yesterday. RADIOLOGY: CT scan yesterday revealed a high grade bowel obstruction with some inflammatory process in the right colon. Today's showed decreased small bowel gas and some air in the right colon. ASSESSMENT: 1. Small bowel obstruction. 2. Obstipation. 3. Multiple medical complications. 4. Probable urinary tract infection. 5. Epigastric pain. PLAN: Advance the nasogastric tube 3 to 4 cm. Continue NG suction and recheck lab and x-ray in the morning. Continue Zosyn waiting the outcome of the urine C&S. #[id number] MTDD
[2019-04-10] MEDS: ONDANSETRON INJ 4 MG/2 ML VIAL IV PRN ×2 (13:36→21:06)
--- NOTE | 2019-04-10 13:58 | RAD ---
EXAM DESCRIPTION: Chest,1 View CLINICAL HISTORY: 48 years Female, NG tube advancement COMPARISON: Previous study April 09, 2019 TECHNIQUE: AP portable chest. FINDINGS: Heart size is prominent with normal pulmonary vascularity. NG tube courses through the esophagus to the stomach. No consolidating infiltrate. No pulmonary mass or worrisome nodule. No pneumothorax or pleural effusion. Bones are unremarkable. IMPRESSION: No acute process is identified in the chest. Electronically signed by: Ike Lugo MD 04/10/2019 1:56 PM CDT
--- NOTE | 2019-04-10 14:08 | PN ---
SUPERVISING PHYSICIAN: Vidal Cobian MD DATE: 04/10/19 SUBJECTIVE: The patient states she feels better once her NG tube has been placed down. She is not really having any significant abdominal pain at this time and her pain is controlled. OBJECTIVE: VITAL SIGNS: Blood pressure 94/60. Heart rate 76. Respiratory rate 14. Temperature 98.1. Oxygen saturation 99%. GENERAL: Ms. Hernandes is a 48-year-old female in no active distress currently. NEUROLOGIC: Alert and oriented. LUNGS: Clear to auscultation bilaterally. CARDIOVASCULAR: Regular rate and rhythm. Normal S1, S2. ABDOMEN: Currently soft. She does have some diffuse tenderness too palpation, but no significant rebound tenderness. Bowel sounds are hypoactive. EXTREMITIES: Lower extremities with no edema. Pulses 2+. Capillary refill is less than 2 seconds. ASSESSMENT: 1. High-grade small bowel obstruction with zone of transition in the right mid abdomen. 2. Urinary tract infection. 3. Nausea and vomiting, improved status post nasogastric tube placement. 4. Hypertension. 5. Seizures. 6. Hypothyroidism. 7. Nicotine dependency. 8. History of depression and anxiety. PLAN: At this time, we will continue gastric decompression via NG tube placement. Her symptoms have improved since that was done. Dr. Busch has been consulted and according to the patient, he stated if there is no significant improvement in two days, then she will undergo surgical intervention. There is concern for adhesions causing the small bowel obstruction and she may need lysis of adhesions. We will continue to monitor and given supportive care at this time. #[id number] MTDD
[2019-04-10] MEDS: ALPRAZolam 0.5 MG TAB PO PRN ×2 (15:44→20:55)
[2019-04-10] MEDS ORDERED: SODIUM CHLORIDE 0.9% 1000ML 0 ML ONE (19:43)
[2019-04-10] MEDS ORDERED: SODIUM CHLORIDE 0.9% 1000ML 1,000 ML IVPB PRN (19:43)
[2019-04-10] MEDS ORDERED: ALBUTEROL SULFATE 2.5 MG/3 ML VIAL NEB SCH (20:00)
[2019-04-10] MEDS: QUEtiapine FUMARATE 100 MG TAB PO SCH (20:23)
[2019-04-10] MEDS: ENOXAPARIN SODIUM 40 MG/0.4 ML SYG SUBCU SCH (20:23)
[2019-04-10] MEDS: diphenhydrAMINE HCL 25 MG CAP PO SCH (20:56)
[2019-04-10] MEDS: PRAZOSIN HCL 1 MG CAP PO SCH (20:57)
[2019-04-10] MEDS ORDERED: MELATONIN 3 MG TAB PO SCH (21:00)
[2019-04-11] MEDS: METOPROLOL SUCCINATE XL 50 MG TAB PO SCH ×2 (00:49→07:45)
[2019-04-11] MEDS: ACETAMINOPHEN W/COD #3 TAB 1 EA TAB PO PRN (02:40)
[2019-04-11] MEDS: KCL 20MEQ/D5 1/2NS 1,000 ML IVS PRN (04:06)
[2019-04-11] MEDS: ALPRAZolam 0.5 MG TAB PO PRN ×3 (05:19→21:53)
[2019-04-11] MEDS: PANTOPRAZOLE SODIUM IV 40 MG VIAL IV SCH (06:18)
[2019-04-11] MEDS: LEVOTHYROXINE SODIUM 0.1 MG TAB PO SCH (06:18)
--- NOTE | 2019-04-11 07:13 | RAD ---
EXAM: Two view(s) of the abdomen. INDICATION: Small bowel obstruction. COMPARISON: 04/10/2019. FINDINGS: Intraperitoneal free air: Negative. Bowel: No dilated loops of small bowel are identified. There are some nonspecific air-fluid levels. Bones: Stable postsurgical changes along the lower lumbar spine. Other: Cholecystectomy clips are noted. The nasogastric tube remains in satisfactory position. IMPRESSION: Nonspecific air-fluid levels. No dilated loops small bowel are identified. Electronically signed by: Junito Mina MD 04/11/2019 7:11 AM CDT Workstation: [id number]
[2019-04-11] MEDS ORDERED: PIPERACILLIN/TAZOBACTAM 3.375 GM VIAL IVPB ONE ×3 (07:24→23:25)
[2019-04-11] MEDS ORDERED: SODIUM CHLORIDE 0.9% 100ML 100 ML IVPB ONE ×3 (07:24→23:26)
[2019-04-11] MEDS: PIPERACILLIN/TAZOBACTAM 3.375 GM in SODIUM CHLORIDE 0.9% 100ML 100 ML IVPB SCH ×3 (07:42→23:27)
[2019-04-11] MEDS: NICOTINE PATCH 14 MG TD SCH (07:43)
[2019-04-11] MEDS: REMOVE OLD PATCH TOP SCH (07:43)
[2019-04-11] MEDS: NIFEdipine XL 30 MG TAB PO SCH (07:43)
[2019-04-11] MEDS: SODIUM CHLORIDE 0.9% (FLUSH) 10 ML SYG IV SCH ×2 (07:44→22:05)
[2019-04-11] MEDS: (Vilazodone Hcl [Viibryd] 20 MG) PO SCH (07:53)
[2019-04-11] MEDS: MORPHINE SULFATE INJ 10 MG/ML VIAL IV PRN (10:40)
--- NOTE | 2019-04-11 10:58 | PN ---
SUPERVISING PHYSICIAN: Vidal Cobian MD DATE: 04/11/19 SUBJECTIVE: The patient states she feels a lot better today and really wants to go home. She is not having any nausea, no vomiting although she has not had a bowel movement yet. OBJECTIVE: VITAL SIGNS: Blood pressure 106/64. Heart rate 57. Respiratory rate 17. Temperature 98.0. Oxygen saturation 98%. GENERAL: Ms. Hernandes is a 48-year-old female in no active distress currently. NEUROLOGIC: Alert and oriented. LUNGS: Clear to auscultation bilaterally. CARDIOVASCULAR: Regular rate and rhythm. Normal S1, S2. ABDOMEN: Soft. Minimal tenderness to palpation, but she does have positive bowel sounds throughout the abdomen. NG tube is clamped at this time. I&Os show she had approximately 1525 out of her NG tube over the last 24 hours. LABORATORY: White count 6.9, hemoglobin 12.1, hematocrit 35.8, platelet count 176. Chemistry shows sodium 137, potassium 4.1, chloride 105, CO2 24, BUN 16, creatinine 0.94, glucose 89, calcium 8.2, AST 103, ALT 59. Abdominal x-ray this morning showed nonspecific air-fluid levels and no dilated loops of small bowel. ASSESSMENT: 1. Small bowel obstruction. 2. Urinary tract infection. 3. Nausea and vomiting, resolved. 4. Hypertension. 5. Seizures. 6. Hypothyroidism. 7. Nicotine dependency. 8. History of depression and anxiety. PLAN: Clinical improvement is noted as above. Additionally, her lab is also improved. She has remained afebrile with no nausea or vomiting. I would imagine today due to her clinical improvement, we will have the NG clamped to see how she does. However, I will defer to Dr. Busch on this. We will recheck labs in the AM as well. #[id number] [facility]
[2019-04-11] MEDS ORDERED: MAGNESIUM HYDROXIDE 30 ML UD NG ONE (11:52)
[2019-04-11] MEDS: ONDANSETRON INJ 4 MG/2 ML VIAL IV PRN (12:26)
[2019-04-11] MEDS: DEX 5% W/NACL 0.45% 1000ML 1,000 ML IVS PRN ×2 (14:02→23:43)
[2019-04-11] MEDS ORDERED: MELATONIN 10 MG TAB PO SCH (21:00)
[2019-04-11] MEDS: PRAZOSIN HCL 1 MG CAP PO SCH (21:51)
[2019-04-11] MEDS: diphenhydrAMINE HCL 25 MG CAP PO SCH (21:52)
[2019-04-11] MEDS: ENOXAPARIN SODIUM 40 MG/0.4 ML SYG SUBCU SCH (21:52)
[2019-04-11] MEDS: PHENYTOIN SODIUM CAP EXTENDED 100 MG CAP PO SCH (21:52)
[2019-04-11] MEDS: QUEtiapine FUMARATE 100 MG TAB PO SCH (21:53)
[2019-04-12] MEDS: ALPRAZolam 0.5 MG TAB PO PRN (04:02)
[2019-04-12] MEDS: PANTOPRAZOLE SODIUM IV 40 MG VIAL IV SCH (06:09)
[2019-04-12] MEDS: LEVOTHYROXINE SODIUM 0.1 MG TAB PO SCH (06:09)
--- NOTE | 2019-04-12 06:51 | RAD ---
EXAM: Two view(s) of the abdomen. INDICATION: Bowel obstruction. COMPARISON: 04/11/2019. FINDINGS: Intraperitoneal free air: Negative. Bowel: There are nonspecific air-fluid levels identified. No dilated loops of small bowel are identified. Bones: Postsurgical changes along the lower lumbar spine. Other: Cholecystectomy clips are noted. The nasogastric tube is in satisfactory position. IMPRESSION: Nonspecific bowel gas pattern. No dilated loops of small bowel are identified. Electronically signed by: Junito Mina MD 04/12/2019 6:49 AM CDT Workstation: [id number]
[2019-04-12] MEDS ORDERED: PIPERACILLIN/TAZOBACTAM 3.375 GM VIAL IVPB ONE (07:22)
[2019-04-12] MEDS ORDERED: SODIUM CHLORIDE 0.9% 100ML 100 ML IVPB ONE (07:22)
[2019-04-12] MEDS: PIPERACILLIN/TAZOBACTAM 3.375 GM in SODIUM CHLORIDE 0.9% 100ML 100 ML IVPB SCH (07:48)
[2019-04-12] MEDS: ACETAMINOPHEN W/COD #3 TAB 1 EA TAB PO PRN (07:49)
[2019-04-12] MEDS: NICOTINE PATCH 14 MG TD SCH (08:41)
[2019-04-12] MEDS: NIFEdipine XL 30 MG TAB PO SCH ×2 (08:45→09:39)
[2019-04-12] MEDS: SODIUM CHLORIDE 0.9% (FLUSH) 10 ML SYG IV SCH (08:45)
[2019-04-12] MEDS: REMOVE OLD PATCH TOP SCH (08:45)
[2019-04-12] MEDS: (Vilazodone Hcl [Viibryd] 20 MG) PO SCH ×2 (08:45→09:39)
[2019-04-12] MEDS: METOPROLOL SUCCINATE XL 50 MG TAB PO SCH ×3 (08:45→09:43)
[2019-04-12] MEDS ORDERED: MAGNESIUM HYDROXIDE 30 ML UD NG ONE (09:24)
[2019-04-12 10:09] VITALS: BP 104/66; TEMP 97.6; O2SAT 98
--- NOTE | 2019-04-12 15:58 | DS ---
SUPERVISING PHYSICIAN: Vidal Cobian M.D. DISCHARGE DIAGNOSIS: 1. Small bowel obstruction. 2. Urinary tract infection. 3. Nausea and vomiting, resolved. 4. Hypertension. 5. Seizures. 6. Hypothyroidism. 7. Nicotine dependency. 8. History of depression and anxiety. HISTORY OF PRESENT ILLNESS: This is a 48-year-old female patient who had some nausea and vomiting at 2 AM on the morning of the day of admission. She has a history of obstipation and constipation so she tried some laxatives, but that only increased her vomiting. She decided to come to the Emergency Room after her nausea and vomiting worsened. She was actually given 2 liters of IV fluids at home by her who is an EMS and she came to the Emergency Room. Her vital signs in the Emergency Room were temperature 99.8, heart rate 96, blood pressure 144/78, respiratory rate 18, O2 saturation 94% on room air. Lab was drawn. She had a WBC of 19,200, hemoglobin 15.1, hematocrit 44.2. She had a left shift on differential. Sodium 140, potassium 3.5, chloride 100, lactic acid 1.1, magnesium 1.7. Liver enzymes were unremarkable. Cardiac enzymes were negative. Urinalysis showed urine pH 9 with urine protein 100, urine nitrite positive, urine bilirubin small amount with 3 to 5 urine WBCs. Urine culture was ordered. Abdominal x-ray showed normal cardiomediastinal silhouette. The visualized lung bases were clear. The patient also has a known small bowel obstruction from previous CT. Scattered large and small intestinal bowel gas with a few short segment air-fluid levels, maximal gaseous distended transverse dimension of small intestine approximately 3.5 cm. Her chest x-ray showed no acute findings, no focal lung consolidation. Her abdominopelvic CT showed findings consistent with high-grade small bowel obstruction with zone of transition in the right mid abdomen. There is some wall thickening in the obstructed segments of bowel as well as edema in the mesentery and fluid in the pelvis. She was started on Zosyn and given some additional fluids as well as some antiemetics. I was called for hospital admission. HOSPITAL COURSE: She had an NG tube from the [facility] and it was placed on low intermittent suction. Dr. Busch was consulted. She was placed on bowel rest except for outpatient medications. She was also given a PPI for ulcer prophylaxis as well as Lovenox for DVT prophylaxis. She was also placed on nebulizer treatments and she was given a nicotine patch. Over the next several days her symptoms improved. There was no significant abdominal pain. Yesterday her symptoms had completely subsided and her NG tube was clamped. She was advanced to a clear liquid diet. Her NG tube was removed. She has tolerated her clear liquids without any problems and today she will go home in stable condition. LABORATORY: Initial WBCs were 19.2 and today they were 5.9. Hemoglobin and hematocrit on admission were 15.1 and 44.2 respectively and today are 12.1 and 35.4. She initially had a left shift on differential, today that has normalized. Potassium was 3.1, after supplementation is now 3.7. Sodium remained stable at 136. BUN is 8 and creatinine is 0.78. She initially had a magnesium of 1.7, after supplementation it improved to 2.2. Urine culture continues to be pending. RADIOLOGY: Followup abdominal x-ray showed nonspecific air-fluid levels. No dilated loops of small bowel are identified. Today's abdominal x-ray shows nonspecific bowel gas pattern. No dilated small bowel are identified. DISCHARGE PLAN: The patient will be discharged home in stable condition. She is to continue a clear liquid diet until tomorrow. She is to then start on protein drinks until the following morning and then she is to advance her diet slowly as tolerated. She is to continue pushing fluids. She is to followup with Dr. Toledo within 1 to [address] Busch. At that time it would be beneficial to look up her urine culture to make sure that she has been sent home on the appropriate antibiotics. At this point I will send her home on 7 additional days of Augmentin. She has not had a small bowel obstruction in over 2 years. I spoke with Dr. Busch and he felt like if she had not had an SBO in the last year she could go home on 10 total days of antibiotic therapy. She is to return to the hospital or followup with Dr. Toledo or Dr. Busch for any problems or complications. DISCHARGE MEDICATIONS: 1. Viibryd. 2. Metoprolol. 3. Procardia. 4. Xanax. 5. Synthroid. 6. Zanaflex. 7. Dilantin. 8. Quetiapine. 9. Prazosin. 10. Tylenol with codeine. 11. Celebrex. 12. Diphenhydramine. 13. Melatonin. 14. Zolpidem. 15. Augmentin. [facility][id number] [facility]
== END 2019-04-12 12:30 | disposition home or self-care (01) | DRG 389 ==
LOC: ER 18:26 → MS 21:28
PROVIDERS: ADMIT Nurse Practitioner Acute Care; ATTEND Nurse Practitioner Acute Care
PROC: BW211ZZ Computerized Tomography (CT Scan) of Abdomen and Pelvis using Low Osmolar Contrast (ICD-10-PCS; principal; 2019-04-09)
DX: K56.50 Intestinal adhesions [bands], unspecified as to partial versus complete obstruction (principal); N39.0 Urinary tract infection, site not specified; I10 Essential (primary) hypertension; E03.9 Hypothyroidism, unspecified; F32.9 Major depressive disorder, single episode, unspecified; F41.9 Anxiety disorder, unspecified; R56.9 Unspecified convulsions; K59.00 Constipation, unspecified; F17.210 Nicotine dependence, cigarettes, uncomplicated; Z98.890 Other specified postprocedural states; Z88.3 Allergy status to other anti-infective agents; Z88.8 Allergy status to other drugs, medicaments and biological substances; Z79.899 Other long term (current) drug therapy; Z86.14 Personal history of Methicillin resistant Staphylococcus aureus infection

== ENCOUNTER → 2019-04-19 | Outpatient (CLI) | payer MEDICARE | LOC: GMAH 14:09 | PROVIDERS: ATTEND Family Medicine | DX: G40.409 Other generalized epilepsy and epileptic syndromes, not intractable, without status epilepticus (principal); I10 Essential (primary) hypertension ==

== ENCOUNTER → 2019-04-27 | Outpatient (CLI) | payer MEDICARE ==
--- NOTE | 2019-04-27 12:03 | CT ---
EXAM DESCRIPTION: Abdoment/Pelvis w/o Contrast CLINICAL HISTORY: 48 years, Female, PARTIAL BOWEL OBSTRUCTION COMPARISON: Previous CT abdomen and pelvis April 09, 2019 TECHNIQUE: CT of the abdomen and pelvis is performed according to our non contrast protocol. FINDINGS: The lung bases are clear. Heart size is normal. Liver, spleen, and pancreas are unremarkable. Gallbladder is surgically absent. Adrenal glands appear normal. The right kidney is unremarkable. The left kidney contains a large cyst 4.5 cm. Smaller left renal cyst inferiorly measures 2.7 cm.. No renal stones or hydronephrosis. Small bowel loops appear normal in caliber with normal wall thickness. There is no lymphadenopathy, inflammation, or free fluid observed. Filling defects throughout the small bowel are small and rounded and therefore thought to be ingested materials rather than parasites which usually appear elongate. In the pelvis, the appendix is not seen. Question small appendiceal stump. No inflammation around the cecum or terminal ileum or sigmoid colon. No stones in the distal ureters or bladder. Rectal wall thickness is normal for degree of distention. No free fluid or mass in the pelvis. Uterus appears normal. Prominent left ovary measures 5.2 x 3.1 cm. Previously the left ovary measured 4.8 cm in greatest dimension. Previous study showed dilated stomach and proximal small bowel loops suggesting partial obstruction. No small bowel dilatation on the present exam. Further evaluation with transvaginal sonography is recommended. Right ovary is not seen. Surgical clips in the right pelvis. No inguinal or lower pelvic adenopathy. Coronal and sagittal reformatted images confirm the findings. IMPRESSION: No acute process in the upper abdomen. Large left ovary 5.2 cm in greatest dimension. Sono may be helpful for further evaluation. This exam was performed according to our departmental dose-optimization program, which includes automated exposure control, adjustment of the mA and/or kV according to patient size and/or use of iterative reconstruction technique. Total DLP equals 650.66 mGycm. Electronically signed by: Ike Lugo MD 04/27/2019 12:00 PM CDT
== END ==
LOC: CT 08:42
PROVIDERS: ATTEND Surgery
DX: K56.609 Unspecified intestinal obstruction, unspecified as to partial versus complete obstruction (principal)

== ENCOUNTER 2020-02-05 13:49 | Observation (INO) | payer MEDICARE ==
[2020-02-05] MEDS ORDERED: ACETAMINOPHEN 500 MG TAB PO ONE (14:23)
[2020-02-05] MEDS ORDERED: SODIUM CHLORIDE 0.9% 1000ML 1,000 ML IVS ONE (14:23)
[2020-02-05] MEDS ORDERED: MORPHINE SULFATE INJ 10 MG/ML VIAL IV ONE ×2 (14:23→16:07)
[2020-02-05] MEDS ORDERED: ONDANSETRON INJ 4 MG/2 ML VIAL IV ONE (14:23)
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
--- NOTE | 2020-02-05 15:05 | RAD ---
EXAM DESCRIPTION: Chest,1 View CLINICAL HISTORY: 49 years Female, abdominal pain nausea constipation COMPARISON: Previous study April 10, 2019 TECHNIQUE: AP portable chest. FINDINGS: Heart size is prominent with normal pulmonary vascularity. No consolidating infiltrate. No pulmonary mass or worrisome nodule. No pneumothorax or pleural effusion. Bones are unremarkable. IMPRESSION: No acute process is identified in the chest. Electronically signed by: Ike Lugo MD 02/05/2020 3:04 PM CDT
--- NOTE | 2020-02-05 15:33 | CT ---
EXAM DESCRIPTION: Abdomen/Pelvis w/Contrast CLINICAL HISTORY: 49 years Female, pain vomiting TECHNIQUE: This exam was performed according to our departmental dose-optimization program, which includes automated exposure control, adjustment of the mA and/or kV according to patient size and/or use of iterative reconstruction technique. COMPARISON: April 27, 2019 FINDINGS: Visualized lung bases are grossly unremarkable. Cholecystectomy. The liver is unremarkable. No suspicious hepatic lesion. No biliary dilatation. . The portal vein is patent. The spleen, pancreas and adrenal glands are unremarkable. Left renal cysts. Symmetric renal parenchymal enhancement. No hydronephrosis. No urolithiasis. Unremarkable bladder. No evidence of bowel obstruction. No evidence of focal bowel inflammation. No findings to suggest appendicitis. No adenopathy. No focal fluid collection. No free air. Normal caliber abdominal aorta. Mild atherosclerotic disease. Trace physiologic free fluid in the pelvis. No acute or suspicious osseous abnormality. Scattered degenerative changes present. IMPRESSION: No evidence of acute process in the abdomen or pelvis. Electronically signed by: Emeka Lopez MD 02/05/2020 3:31 PM CDT
[2020-02-05] MEDS ORDERED: SIMETHICONE 80 MG TAB PO PRN (16:07)
--- NOTE | 2020-02-05 17:39 | HP ---
SUPERVISING PHYSICIAN: Vidal Cobian MD CHIEF COMPLAINT: Abdominal pain. HISTORY OF PRESENT ILLNESS: This is a 49-year-old female who came in with a chief complaint of abdominal pain. She has a past history of small bowel obstruction. She states she has some scar tissue that causes some narrowing of the bowel and difficult to completely evacuate. She states that for the past three weeks, she has had some abdominal pain associated with some constipation. She denies any fever or chills. She says she is trying every laxative that she can as well as some enemas without the ability to completely evacuate. In the Emergency Room, her workup included a CT scan of the abdomen and pelvis which did not show any acute findings. Labs are pretty much unremarkable except for an elevated BUN indicating her dehydration. She states she has lost about 11 pounds and she is not very big to begin with. At the time of examination, the patient is tearful, but otherwise in no significant distress. She received morphine in the Emergency Room as well. PAST MEDICAL HISTORY: 1. Small bowel obstruction in the past. 2. Anxiety and depression. 3. 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 4. Hypertension. 5. Hypothyroidism. 6. Obstipation and constipation. 7. Distant history of migraine headaches. PAST SURGICAL HISTORY: 1. Laparotomy for bowel obstruction. 2. Back surgery with L5 disc replacement. 3. Ablation. 4. Cholecystectomy. 5. Appendectomy. 6. Teeth removed. 7. Right oophorectomy. HOME MEDICATIONS: Please see med rec list once verified in the computer. ALLERGIES: CHLORHEXIDINE, VALPROIC ACID, DOXYCYCLINE, SUMATRIPTAN. SOCIAL HISTORY: She lives in [place]. She is . She is a smoker, no illicit drugs, no alcohol. FAMILY HISTORY: Reviewed, noncontributory to current findings. REVIEW OF SYSTEMS: CONSTITUTIONAL: Positive for fatigue and unintentional weight loss due to the acute illness, but no fever or chills. HEENT: No headaches, vision changes, ear pain, nasal congestion or throat pain. RESPIRATORY: No cough, hemoptysis or pleuritic chest pain. CARDIOVASCULAR: No chest pain, palpitations or peripheral edema. GASTROINTESTINAL: Positive for some nausea. No vomiting, diarrhea. Positive for constipation. GENITOURINARY: No dysuria, frequency or flank pain. MUSCULOSKELETAL: No muscle cramps, joint pain or joint swelling. ENDOCRINE: No polydipsia, polyuria or polyphagia. No heat or cold intolerance. SKIN: No rashes, lesions or wounds. NEUROLOGIC: No syncope, paresthesias or seizures. PHYSICAL EXAMINATION: VITAL SIGNS: Blood pressure 142/82, heart rate 62, respiratory rate 16, temperature 98.0, oxygen saturation 98%. GENERAL: Ms. Hernandes is a 49-year-old female who is in no active distress currently. NEUROLOGIC: The patient is alert and oriented. LUNGS: Clear to auscultation bilaterally. CARDIOVASCULAR: Regular rate and rhythm. Normal S1, S2. ABDOMEN: Soft. Positive bowel sounds. She does have some mild tenderness to palpation, but no rebound tenderness. GENITOURINARY: Deferred. EXTREMITIES: Lower extremities with no edema. Pulses 2+. Capillary refill is less than 2 seconds. LABORATORY: Labs and films are as discussed in history of present illness. ASSESSMENT: 1. Abdominal pain. 2. Constipation. 3. Dehydration with uremia. 4. Hypertension. 5. Depression with anxiety. PLAN: The patient will be admitted. I will put her on some IV fluids while also giving her a dose of mag citrate and soapsuds enema to see if we can clear her out a little bit better. CT scan of the abdomen was interpreted as no acute findings, however, I will have the radiologist over-read that tomorrow here to ensure that they do not see any abnormalities. It looks to me like she has some air-fluid levels that could indicate that she has some decreased peristalsis I believe. I will have them review that. I do not think she needs any antibiotic therapy. I am going to give her some doses of Reglan and p.r.n. pain medication. We will put her on a clear liquid diet for now until she is not vomiting. There is no evidence of small bowel obstruction currently, so I am not going to give her an NG tube. We will monitor her for the next 24 hours. Hopefully she can go home if she improves. If not, we will keep her another 24 hours so I can consult Dr. Busch as he has seen her in the past as well. [facility][id number] [facility]
[2020-02-05] MEDS ORDERED: MAGNESIUM CITRATE 300 ML BTTL PO ONE (18:13)
[2020-02-05] MEDS ORDERED: SODIUM CHLORIDE 0.9% (FLUSH) 10 ML SYG IV PRN (18:20)
[2020-02-05] MEDS ORDERED: IV SET AND CAP CHANGE INJ INJ SCH (18:30)
[2020-02-05] MEDS: METOCLOPRAMIDE HCL INJ 10 MG/2 ML VIAL IV SCH (19:34)
[2020-02-05] MEDS: DEX 5% W/NACL 0.45% 1000ML 1,000 ML IVS PRN (19:35)
[2020-02-05] MEDS: fentaNYL CITRATE INJ 50 MCG/ML 2 ML AMP IV PRN (19:51)
[2020-02-05] MEDS ORDERED: tiZANidine 4 MG TAB PO PRN (21:47)
[2020-02-05] MEDS ORDERED: PRAZOSIN HCL 1 MG CAP ONE (21:54)
[2020-02-05] MEDS ORDERED: QUEtiapine FUMARATE 100 MG TAB ONE (21:54)
[2020-02-05] MEDS ORDERED: PHENYTOIN SODIUM CAP EXTENDED 100 MG CAP PO ONE (21:54)
[2020-02-05] MEDS ORDERED: MELATONIN 3 MG TAB ONE (21:55)
[2020-02-05] MEDS ORDERED: diphenhydrAMINE HCL 25 MG CAP ONE (21:55)
[2020-02-05] MEDS ORDERED: ALPRAZolam 0.5 MG TAB ONE (21:55)
[2020-02-05] MEDS ORDERED: LEVOTHYROXINE SODIUM 0.1 MG TAB ONE (23:51)
[2020-02-05] MEDS ORDERED: LEVOTHYROXINE SODIUM 0.075 MG TAB ONE (23:51)
[2020-02-06] MEDS: METOCLOPRAMIDE HCL INJ 10 MG/2 ML VIAL IV SCH ×3 (00:42→12:56)
[2020-02-06] MEDS: fentaNYL CITRATE INJ 50 MCG/ML 2 ML AMP IV PRN ×2 (03:51→12:55)
[2020-02-06] MEDS: DEX 5% W/NACL 0.45% 1000ML 1,000 ML IVS PRN (05:05)
[2020-02-06] MEDS ORDERED: NON-FORMULARY MEDICATION 1 EA MIS (Levothyroxine Sodium [Synthroid] 175 MCG) PO SCH (06:30)
[2020-02-06] MEDS ORDERED: MAGNESIUM HYDROXIDE 30 ML UD PO SCH (09:00)
[2020-02-06] MEDS ORDERED: CELECOXIB 100 MG CAP PO SCH (09:00)
[2020-02-06] MEDS ORDERED: (Vilazodone Hcl [Viibryd] 20 MG) PO SCH (09:00)
[2020-02-06] MEDS ORDERED: NON-FORMULARY MEDICATION 1 EA MIS (Alprazolam [Xanax] 1 MG) PO SCH (09:00)
[2020-02-06] MEDS ORDERED: ALPRAZolam 0.5 MG TAB PO SCH (09:00)
[2020-02-06] MEDS ORDERED: ALPRAZOLAM 1 MG TAB PO SCH (09:30)
[2020-02-06 13:13] VITALS: BP 96/61; TEMP 98.2; O2SAT 99
--- NOTE | 2020-02-06 15:00 | SSS ---
SUPERVISING PHYSICIAN: Vidal Cobian MD CHIEF COMPLAINT: Abdominal pain. HISTORY OF PRESENT ILLNESS: This is a 49-year-old female who came in with a chief complaint of abdominal pain. She has a past history of small bowel obstruction. She states she has some scar tissue that causes some narrowing of the bowel and difficult to completely evacuate. She states that for the past three weeks, she has had some abdominal pain associated with some constipation. She denies any fever or chills. She says she is trying every laxative that she can as well as some enemas without the ability to completely evacuate. In the Emergency Room, her workup included a CT scan of the abdomen and pelvis which did not show any acute findings. Labs are pretty much unremarkable except for an elevated BUN indicating her dehydration. She states she has lost about 11 pounds and she is not very big to begin with. At the time of examination, the patient is tearful, but otherwise in no significant distress. She received morphine in the Emergency Room as well. PAST MEDICAL HISTORY: 1. Small bowel obstruction in the past. 2. Anxiety and depression. 3. 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 4. Hypertension. 5. Hypothyroidism. 6. Obstipation and constipation. 7. Distant history of migraine headaches. PAST SURGICAL HISTORY: 1. Laparotomy for bowel obstruction. 2. Back surgery with L5 disc replacement. 3. Ablation. 4. Cholecystectomy. 5. Appendectomy. 6. Teeth removed. 7. Right oophorectomy. HOME MEDICATIONS: Please see med rec list once verified in the computer. ALLERGIES: CHLORHEXIDINE, VALPROIC ACID, DOXYCYCLINE, SUMATRIPTAN. SOCIAL HISTORY: She lives in [place]. She is . She is a smoker, no illicit drugs, no alcohol. FAMILY HISTORY: Reviewed, noncontributory to current findings. REVIEW OF SYSTEMS: CONSTITUTIONAL: Positive for fatigue and unintentional weight loss due to the acute illness, but no fever or chills. HEENT: No headaches, vision changes, ear pain, nasal congestion or throat pain. RESPIRATORY: No cough, hemoptysis or pleuritic chest pain. CARDIOVASCULAR: No chest pain, palpitations or peripheral edema. GASTROINTESTINAL: Positive for some nausea. No vomiting, diarrhea. Positive for constipation. GENITOURINARY: No dysuria, frequency or flank pain. MUSCULOSKELETAL: No muscle cramps, joint pain or joint swelling. ENDOCRINE: No polydipsia, polyuria or polyphagia. No heat or cold intolerance. SKIN: No rashes, lesions or wounds. NEUROLOGIC: No syncope, paresthesias or seizures. PHYSICAL EXAMINATION: VITAL SIGNS: Blood pressure 142/82, heart rate 62, respiratory rate 16, temperature 98.0, oxygen saturation 98%. GENERAL: Ms. Hernandes is a 49-year-old female who is in no active distress currently. NEUROLOGIC: The patient is alert and oriented. LUNGS: Clear to auscultation bilaterally. CARDIOVASCULAR: Regular rate and rhythm. Normal S1, S2. ABDOMEN: Soft. Positive bowel sounds. She does have some mild tenderness to palpation, but no rebound tenderness. GENITOURINARY: Deferred. EXTREMITIES: Lower extremities with no edema. Pulses 2+. Capillary refill is less than 2 seconds. LABORATORY: Labs and films are as discussed in history of present illness. ASSESSMENT: 1. Abdominal pain. 2. Constipation. 3. Dehydration with uremia. 4. Hypertension. 5. Depression with anxiety. PLAN: The patient will be admitted. I will put her on some IV fluids while also giving her a dose of mag citrate and soapsuds enema to see if we can clear her out a little bit better. CT scan of the abdomen was interpreted as no acute findings, however, I will have the radiologist over-read that tomorrow here to ensure that they do not see any abnormalities. It looks to me like she has some air-fluid levels that could indicate that she has some decreased peristalsis I believe. I will have them review that. I do not think she needs any antibiotic therapy. I am going to give her some doses of Reglan and p.r.n. pain medication. We will put her on a clear liquid diet for now until she is not vomiting. There is no evidence of small bowel obstruction currently, so I am not going to give her an NG tube. We will monitor her for the next 24 hours. Hopefully she can go home if she improves. If not, we will keep her another 24 hours so I can consult Dr. Busch as he has seen her in the past as well. DISCHARGE: The patient had some results with the magnesium citrate, Reglan, and soap suds enemas. Her pain improved. I did have the radiologist read the CT scan from the day before to ensure no significant abnormalities. He did confirm there was an increased amount of gas, but nothing surgical. After discussion with the patient, we will send her home. I have recommended that she see GI again. I think she needs a colonoscopy, she states she was unable to clear out last time. If there is a colon defect that is preventing her from eliminating or some kind of stricture, it should be identified. Will advance diet as tolerated. Continue current medications. #[id number] [facility]
[2020-02-06] MEDS ORDERED: PHENYTOIN SODIUM CAP EXTENDED 100 MG CAP PO SCH (21:00)
[2020-02-06] MEDS ORDERED: ACETAMINOPHEN W/ COD #4 TAB 1EA TAB PO SCH (21:00)
[2020-02-06] MEDS ORDERED: NON-FORMULARY MEDICATION 1 EA MIS (Melatonin [Melatonin] 20 MG) PO SCH (21:00)
[2020-02-06] MEDS ORDERED: ZOLPIDEM TARTRATE 12.5 MG PO SCH (21:00)
[2020-02-06] MEDS ORDERED: NON-FORMULARY MEDICATION 1 EA MIS (Diphenhydramine Hcl [Benadryl] 50 MG) PO SCH (21:00)
[2020-02-06] MEDS ORDERED: QUEtiapine FUMARATE 100 MG TAB PO SCH (21:00)
[2020-02-06] MEDS ORDERED: diphenhydrAMINE HCL 25 MG CAP PO SCH (21:00)
[2020-02-06] MEDS ORDERED: MELATONIN 3 MG TAB PO SCH (21:00)
[2020-02-06] MEDS ORDERED: PRAZOSIN HCL 6 MG PO SCH (21:00)
[2020-02-06] MEDS ORDERED: PRAZOSIN HCL 1 MG CAP PO SCH (21:00)
[2020-02-07] MEDS ORDERED: LEVOTHYROXINE SODIUM 0.1 MG TAB PO SCH (07:00)
[2020-02-07] MEDS ORDERED: LEVOTHYROXINE SODIUM 0.075 MG TAB PO SCH (07:00)
== END 2020-02-06 15:30 | disposition home or self-care (01) ==
LOC: ER 13:49 → MS 17:37
PROVIDERS: ADMIT Nurse Practitioner; ATTEND Nurse Practitioner
DX: K59.00 Constipation, unspecified (principal); R10.9 Unspecified abdominal pain; E86.0 Dehydration; N19 Unspecified kidney failure; I10 Essential (primary) hypertension; F41.8 Other specified anxiety disorders; E03.9 Hypothyroidism, unspecified; K21.9 Gastro-esophageal reflux disease without esophagitis; F17.210 Nicotine dependence, cigarettes, uncomplicated; Z79.890 Hormone replacement therapy; Z79.899 Other long term (current) drug therapy; Z88.8 Allergy status to other drugs, medicaments and biological substances; Z90.49 Acquired absence of other specified parts of digestive tract; Z86.14 Personal history of Methicillin resistant Staphylococcus aureus infection
CPT/HCPCS: 96361 ×2; 96374; 96375; 96376 ×2; Q0163; J3010 ×3; J2765 ×4; J2270 ×2; J2405; J7030; J7799 ×2; 80053; 81025; 81001; 85025; 83690; 84484 ×2; 87070; 71045; 74177; 94760; 99285; 93005; G0378